=== PATIENT | male | born 1965 | race Caucasian/White ===

== ENCOUNTER 2021-10-04 01:03 | Inpatient (IN) ==
[2021-10-04] MEDS ORDERED: 0.9 % Sodium Chloride 500 ML IVC ONE (01:10)
[2021-10-04] MEDS: Nitroglycerin 0.4 MG TAB.SUBL SL PRN ×6 (01:20→09:17)
[2021-10-04 01:44] LABS: Basophils % 0.6 %; Eosinophils % 2.6 %; Hematocrit 45.4 % (37.5-50.1); Hemoglobin 15.1 g/dL (12.9-16.9); Immature Granulocytes % 0.3 % (0-4); Lymphocytes % 21.3 %; Mean Corpuscular HGB Conc 33.3 g/dL (31.6-35.5); Mean Corpuscular Hemoglobin 30.8 pg (28.0-33.3); Mean Corpuscular Volume 92.5 fL (83.0-100.0); Mean Platelet Volume 8.7 fL (9.4-12.4); Monocytes % 6.2 %; Platelet Count 291 K/mcL (140-400); Red Blood Count 4.91 M/mcL (4.19-5.50); White Blood Count 9.9 K/mcL (4.3-11.1)
[2021-10-04 01:45] LABS: Basophils # 0.1 K/mcL (0.0-0.2); Eosinophils # 0.3 K/mcL (0.0-0.6); Lymphocytes # 2.1 K/mcL (0.6-4.6); Monocytes # 0.6 K/mcL (0.0-1.3); Neutrophils # 6.8 K/mcL (1.6-8.9)
[2021-10-04 01:58] LABS: Activated Partial Thrombo Time 38.8 Seconds (26.0-36.0)
[2021-10-04 02:06] LABS: Alanine Aminotransferase 21 Units/L (7-52); Albumin 4.4 g/dL (3.5-5.7); Albumin/Globulin Ratio 1.5 (1.1-2.2); Alkaline Phosphatase 90 Units/L (34-104); Aspartate Amino Transferase 40 Units/L (13-39); BUN/Creatinine Ratio 24 (6-26); Bilirubin,Direct 0.1 mg/dL (0.0-0.2); Bilirubin,Indirect 0.4 mg/dL (0.0-1.0); Bilirubin,Total 0.5 mg/dL (0.3-1.0); Blood Urea Nitrogen 27 mg/dL (6-20); Calcium 9.5 mg/dL (8.6-10.3); Carbon Dioxide 26 mEq/L (23-29); Chloride 102 mEq/L (98-107); Glucose 148 mg/dL (70-105); Lipase 15 Units/L (11-82); Osmolality,Calculated 290 (280-300); Potassium 3.9 mEq/L (3.5-5.1); Sodium 136 mEq/L (136-145); Total Protein 7.4 g/dL (6.4-8.9); eGFR For African Americans > 60 (> 60); eGFR For Non-African Americans > 60 (> 60)
[2021-10-04] MEDS ORDERED: *HR* FentaNYL (PF) 100 MCG/2 ML VIAL IVP ONE (02:06)
[2021-10-04 02:22] LABS: Troponin I 2.55 ng/mL (< 0.04)
[2021-10-04] MEDS ORDERED: *HR* Heparin 5,000 UNIT/ML VIAL IVP PRN ×4 (02:22→05:36)
[2021-10-04] MEDS ORDERED: *HR* Heparin 5,000 UNIT/ML VIAL IVP ONE (02:22)
[2021-10-04] MEDS ORDERED: Iopamidol - 370 500 ML MLS IVP ONE (02:30)
[2021-10-04] MEDS ORDERED: Heparin 25,000UNIT/250ML 1/2NS 25,000 UNIT/250 ML IV.SOLN IVC SCH (02:30)
[2021-10-04] MEDS ORDERED: Naloxone 0.4 MG/ML INJ IVP PRN (02:42)
[2021-10-04] MEDS ORDERED: Melatonin 3 MG TABLET PO PRN (02:42)
[2021-10-04] MEDS ORDERED: Perflutren Lipid Microsphere 1.3 ML in 0.9 % Sodium Chloride 8.7 ML IVP PRN (02:47)
[2021-10-04 03:33] LABS: Influenza A PCR Negative (Negative); Influenza B PCR Negative (Negative); Resp. Syncytial Virus PCR Negative (Negative)
[2021-10-04 03:34] LABS: SARS-CoV-2 by PCR (In House) Negative (Negative)
[2021-10-04] MEDS ORDERED: Morphine Sulfate 2 MG/ML SYRINGE IVP PRN (05:18)
[2021-10-04] MEDS: Heparin 25,000UNIT/250ML 1/2NS 25,000 UNIT/250 ML IV.SOLN IVC SCH ×2 (05:50→20:11)
[2021-10-04 06:07] LABS: Amphetamine Screen,Urine Positive ng/mL (Cutoff=1000); Barbiturate Screen,Urine Negative ng/mL (Cutoff=200); Benzodiazepines Screen,Urine Negative ng/mL (Cutoff=200); Cannabinoid Screen,Urine Negative ng/mL (Cutoff = 50); Cocaine Screen,Urine Negative ng/mL (Cutoff= 300); Opiate Screen,Urine Negative ng/mL (Cutoff=300); Phencyclidine Screen,Urine Negative ng/mL (Cutoff=25)
[2021-10-04] MEDS ORDERED: carvediloL 6.25 MG TABLET PO SCH (08:00)
[2021-10-04] MEDS ORDERED: lisinopriL 5 MG TABLET PO SCH (09:00)
[2021-10-04] MEDS: Aspirin 81 MG TAB.CHEW PO SCH (09:01)
[2021-10-04] MEDS: lisinopriL 20 MG TABLET PO SCH (09:01)
[2021-10-04] MEDS: carvediloL 6.25 MG TABLET PO SCH (16:11)
[2021-10-05] MEDS: Aspirin 81 MG TAB.CHEW PO SCH (07:56)
[2021-10-05] MEDS: lisinopriL 20 MG TABLET PO SCH (07:56)
[2021-10-05] MEDS: carvediloL 6.25 MG TABLET PO SCH ×2 (07:56→16:32)
[2021-10-05 10:44] LABS: BUN/Creatinine Ratio 19 (6-26); Blood Urea Nitrogen 25 mg/dL (6-20); Carbon Dioxide 23 mEq/L (23-29); Chloride 103 mEq/L (98-107); Glucose 110 mg/dL (70-105); Magnesium 1.7 mg/dL (1.6-2.6); Osmolality,Calculated 285 (280-300); Potassium 3.9 mEq/L (3.5-5.1); Sodium 135 mEq/L (136-145); eGFR For African Americans > 60 (> 60); eGFR For Non-African Americans 58 (> 60)
[2021-10-05] MEDS: Heparin 25,000UNIT/250ML 1/2NS 25,000 UNIT/250 ML IV.SOLN IVC SCH (11:14)
[2021-10-06] MEDS: Heparin 25,000UNIT/250ML 1/2NS 25,000 UNIT/250 ML IV.SOLN IVC SCH ×2 (02:54→17:59)
[2021-10-06 06:45] LABS: Hemoglobin 13.9 g/dL (12.9-16.9); Mean Corpuscular HGB Conc 33.1 g/dL (31.6-35.5); Mean Corpuscular Hemoglobin 30.9 pg (28.0-33.3); Mean Corpuscular Volume 93.3 fL (83.0-100.0); Mean Platelet Volume 8.8 fL (9.4-12.4); Platelet Count 252 K/mcL (140-400); Red Cell Distribution Width 13.1 % (11.5-14.5); White Blood Count 7.8 K/mcL (4.3-11.1)
[2021-10-06 07:36] LABS: BUN/Creatinine Ratio 18 (6-26); Blood Urea Nitrogen 22 mg/dL (6-20); Calcium 8.9 mg/dL (8.6-10.3); Carbon Dioxide 25 mEq/L (23-29); Chloride 104 mEq/L (98-107); Glucose 118 mg/dL (70-105); Magnesium 1.8 mg/dL (1.6-2.6); Osmolality,Calculated 288 (280-300); Sodium 137 mEq/L (136-145); eGFR For African Americans > 60 (> 60); eGFR For Non-African Americans > 60 (> 60)
[2021-10-06] MEDS: lisinopriL 20 MG TABLET PO SCH (10:08)
[2021-10-06] MEDS: carvediloL 6.25 MG TABLET PO SCH ×2 (10:08→16:28)
[2021-10-06] MEDS: Aspirin 81 MG TAB.CHEW PO SCH (10:08)
[2021-10-06] MEDS ORDERED: Lidocaine Viscous Oral Soln 15 ML SOLUTION MM PRN (13:20)
[2021-10-06] MEDS ORDERED: 0.9 % Sodium Chloride 500 ML IVC ONE (13:20)
[2021-10-06] MEDS ORDERED: Ketamine HCL *QUVA* 50mg (1mL) SYRINGE ONE (13:59)
[2021-10-06] MEDS ORDERED: *HR* Vasopressin 20 UNIT/ML VIAL ONE (13:59)
[2021-10-06 15:31] VITALS: PULSE 63; TEMP 98.2; O2SAT 98
[2021-10-06] MEDS ORDERED: Vancomycin 2,000 MG/520 ML IV.SOLN IVPB ONE (17:00)
[2021-10-06] MEDS ORDERED: Cefepime HCl 2,000 MG in 0.9 % Sodium Chloride 10 ML IVP SCH (17:30)
[2021-10-06 19:05] VITALS: BP 143/77
[2021-10-06] MEDS ORDERED: Lidocaine -MPF 2% 5 ML VIAL SQ ONE (20:12)
[2021-10-06] MEDS ORDERED: *HR* Etomidate 20 MG/10 ML AMPUL IVP ONE (20:12)
[2021-10-06] MEDS ORDERED: *HR* Phenylephrine 10 MG/ML VIAL IVC ONE (20:12)
[2021-10-06] MEDS ORDERED: *HR* Water for inj. (sterile) Vial 10 ML IV ONE (20:12)
[2021-10-06] MEDS ORDERED: *HR* Propofol 200 MG/20 ML VIAL IVP ONE (20:12)
[2021-10-07] MEDS ORDERED: Vancomycin 1,750 MG/517.5 ML IV.SOLN IVPB SCH (06:00)
== END 2021-10-06 20:13 | disposition left against medical advice (07) | DRG 190 ==
LOC: EMEROOARM 01:03 → 3NENU 01:03 → SUATTDRO 02:54 → 3NENU 03:43
PROVIDERS: ADMIT Internal Medicine; ATTEND Internal Medicine